=== PATIENT | male | born 1960 | race Caucasian/White ===

== ENCOUNTER → 2024-04-29 | Outpatient (CLI) | payer OTHER, SELFPAY ==
[2024-04-29 08:03] LABS: Collection Type, Urine Clean Catch; Squamous Epithelial Cell,Urine 0 /hpf (0-5)
[2024-04-29 08:36] LABS: Bilirubin,Urine Negative (Negative); Blood,Urine Negative (Negative); Clarity,Urine Clear (Clear/Hazy); Color,Urine Yellow (Lt Yel-Yel); Culture Indicated,Urine Not Indicated; Glucose, Urine Negative (Negative); Ketones,Urine Negative (Negative); Leukocyte Esterase,Urine Negative (Negative); Nitrite,Urine Negative (Negative); PH,Urine 5.5 (5.0-7.0); Protein,Urine Negative (Neg - Trace); RBC,Urine 2 /hpf (0-3); Urobilinogen,Urine Negative mg/dL (0.0-1.0); WBC,Urine 1 /hpf (0-5)
[2024-04-29 08:38] LABS: Basophils % (Auto) 0 % (0-2.5); Eosinophils # (Auto) 0.2 Thou/mm3 (0.0-0.5); Eosinophils % (Auto) 3 % (0-10); Hematocrit 42.3 % (41.0-53.0); Immature Granulocytes % (Auto) 0 % (0-0); Immature Granulocytes Auto 0.02 Thou/mm3 (0.00-0.00); Lymphocytes % (Auto) 30 % (10-50); Mean Corpuscular HGB Conc 33.1 g/dl (31.0-37.0); Mean Corpuscular Hemoglobin 28.6 pg (25.0-35.0); Mean Corpuscular Volume 86 fL (80-100); Monocytes # (Auto) 0.5 Thou/mm3 (0.0-0.8); Monocytes % (Auto) 7 % (0-12); Neutrophils % (Auto) 59 % (37-80); Nucleated Red Blood Cell % 0 /100 WBC (0); Platelet Count 261 Thou/mm3 (140-440); White Blood Count 6.7 Thou/mm3 (3.8-10.6)
[2024-04-29 08:42] LABS: Prostate Specific Antigen 0.18 ng/mL (0-4.00)
[2024-04-29 08:46] LABS: Alanine Aminotransferase 18 U/L (10-49); Albumin, Serum 4.3 gm/dL (3.4-4.8); Alkaline Phosphatase 81 U/L (46-116); Anion Gap 7 (7-16); Aspartate Amino Transferase 18 U/L (0-34); BUN/Creatinine Ratio 17 Ratio (12-20); Bilirubin,Total 0.3 mg/dL (0.3-1.2); Blood Urea Nitrogen 17 mg/dL (9-23); Calcium 9.7 mg/dL (8.3-10.6); Calcium (Corrected) 9.7 mg/dL (8.5-10.1); Carbon Dioxide 25.5 mMol/L (20.0-31.0); Cardiac Risk Estimate 5.5 RATIO (4.0-6.7); Chloride 110 mMol/L (98-107); Cholesterol 180 mg/dL (132-200); Globulin 2.2 gm/dL (2.3-3.5); Glucose 97 mg/dL (74-106); HDL Cholesterol 33 mg/dL (40-60); LDL Cholesterol,Calculated 128 mg/dL (0-130); Osmolality,Calculated 284 (275-295); Sodium 142 mMol/L (136-145); Thyroid Stimulating Hormone 1.96 uIU/mL (0.55-4.78); Total Protein 6.5 gm/dL (5.7-8.2); Triglycerides 93 mg/dL (30-150); eGFR > 60 See Note
[2024-04-29 08:57] LABS: Glucose Estimated Average 108 mg/dL (80-131); Hemoglobin A1C 5.4 % Hgb (4.8-6.0)
== END | disposition home or self-care (01) ==
PROVIDERS: PCP Family Medicine; Referring Provider Physician Assistant; Visit Provider Physician Assistant
DX: E66.9 Obesity, unspecified (principal)
CPT/HCPCS: 36415; 80053; 80061; 81001; 83036; 84153; 84443; 85025

== ENCOUNTER → 2024-05-06 | Outpatient (CLI) | payer MEDICARE, SELFPAY ==
--- NOTE | 2024-05-06 15:00 | XR_ITS ---
Examination: Arterial duplex lower extremity study. Date and time of exam: May 06, 2024 1511 hours INDICATIONS: Bilateral leg pain years Findings: Duplex sonographic imaging of the lower extremity arteries using B-mode/Stoddard scale imaging and Doppler spectral analysis and color flow. Ankle brachial indices have been recorded. Right common femoral artery demonstrates triphasic flow. Right superficial femoral artery demonstrates triphasic flow. Right popliteal artery demonstrates triphasic flow. Right posterior tibial artery demonstrated triphasic flow. Right ankle/brachial index is 1.1. Left common femoral artery demonstrates triphasic flow. Left superficial femoral artery demonstrates triphasic flow. Left popliteal artery demonstrates triphasic flow. Left posterior tibial artery demonstrated triphasic flow. Left ankle/brachial index is 1.2. Impression: Negative examination
== END | disposition home or self-care (01) ==
PROVIDERS: PCP Physician Assistant; Referring Provider Physician Assistant; Visit Provider Physician Assistant
DX: M79.661 Pain in right lower leg (principal); M79.662 Pain in left lower leg
CPT/HCPCS: 93925

== ENCOUNTER 2025-03-27 19:05 | Emergency (ER) | payer MEDICARE, SELFPAY ==
[2025-03-27 19:06] VITALS: BMI 33.6
--- NOTE | 2025-03-27 19:08 | EKG_ITS ---
[facility] Test Date: 2025-03-27 Pat Name: SANGEETHA MARTIN Department: Room: - Gender: Male [employer] Room [employer]: : 1960 Requested By: Ben Patricia Order Number: [id number] Reading MD: Ben Patricia Measurements Intervals [place] Rate: 74 P: 14 CO: 179 QRS: 38 QRSD: 89 T: 29 QT: 372 QTc: 415 Interpretive Statements SINUS RHYTHM WITH OCCASIONAL SUPRAVENTRICULAR PREMATURE COMPLEXES No previous ECG available for comparison /[id number]/[email or web address]/[id number].pdf
[2025-03-27 19:29] VITALS: BP 154/85; PULSE 72; RESP 18; TEMP 37.1; O2SAT 96
--- NOTE | 2025-03-27 19:39 | EDRME_ITS ---
Rapid Medical Screening Exam [facility] Arrival date/time: 03/27/25 19:05 64M with no significant PMH presents to ED with 2 days of intermittent CP and weakness. Patient denies URI symptoms. Chief Complaint: Chest Pain Vital signs: Vital Signs Temperature 98.8 F 03/27/25 19:29 Pulse Rate 72 03/27/25 19:29 Respiratory Rate 18 03/27/25 19:29 Blood Pressure 154/85 H 03/27/25 19:29 Pulse Oximetry (%) 96 03/27/25 19:29 Oxygen Delivery Method Room Air 03/27/25 19:29 Exam: RRR and clear lungs with normal WOB. Clinical Impression: ACS vs PE vs anxiety
--- NOTE | 2025-03-27 19:39 | XR_ITS ---
EXAMINATION: PA chest single view TECHNIQUE: Upright PA chest single view Date and time: March 27, 2025, 194 hours, comparison December 27, 2022 INDICATIONS: Chest pain 5 days FINDINGS: Normal heart size No lobar pneumonia or pulmonary edema Intact osseous structures IMPRESSION: No pneumonia or pulmonary edema
[2025-03-27 20:13] LABS: Basophils # (Auto) 0.0 Thou/mm3 (0.0-0.2); Basophils % (Auto) 0 % (0-2.5); Eosinophils # (Auto) 0.2 Thou/mm3 (0.0-0.5); Eosinophils % (Auto) 2 % (0-10); Hematocrit 39.5 % (41.0-53.0); Hemoglobin 13.2 g/dL (13.5-16.0); Immature Granulocytes Auto 0.04 Thou/mm3 (0.00-0.00); Lymphocytes # (Auto) 3.0 Thou/mm3 (1.0-4.8); Lymphocytes % (Auto) 31 % (10-50); Mean Corpuscular HGB Conc 33.4 g/dl (31.0-37.0); Mean Corpuscular Hemoglobin 28.8 pg (25.0-35.0); Mean Corpuscular Volume 86 fL (80-100); Monocytes # (Auto) 0.9 Thou/mm3 (0.0-0.8); Monocytes % (Auto) 9 % (0-12); Neutrophils # (Auto) 5.7 Thou/mm3 (1.8-7.7); Neutrophils % (Auto) 58 % (37-80); Nucleated Red Blood Cell # 0.00 Thou/mm3 (0.00-0.00); Nucleated Red Blood Cell % 0 /100 WBC (0); Platelet Count 267 Thou/mm3 (140-440); RDW Standard Deviation 41.2 fL (35.1-43.9); Red Blood Count 4.58 Miln/mm3 (4.50-5.90); White Blood Count 9.9 Thou/mm3 (3.8-10.6)
[2025-03-27 20:30] LABS: INR 1.0 (0.9-1.3); Partial Thromboplastin Time 29.6 Seconds (22.0-36.0); Prothrombin Time 10.4 Seconds (9.0-12.2)
[2025-03-27 20:37] LABS: Alanine Aminotransferase 16 U/L (10-49); Albumin, Serum 4.6 gm/dL (3.4-4.8); Albumin/Globulin Ratio 2.3 (1.2-2.2); Alkaline Phosphatase 79 U/L (46-116); Anion Gap 11 (7-16); Aspartate Amino Transferase 19 U/L (0-34); BUN/Creatinine Ratio 14 Ratio (12-20); Bilirubin,Total 0.3 mg/dL (0.3-1.2); Blood Urea Nitrogen 17 mg/dL (9-23); Calcium 9.2 mg/dL (8.3-10.6); Calcium (Corrected) 9.2 mg/dL (8.5-10.1); Carbon Dioxide 25.0 mMol/L (20.0-31.0); Chloride 108 mMol/L (98-107); Creatinine (Component) 1.2 mg/dL (0.6-1.3); Estimated Creatinine Clearance 83.0 mL/min (>60); Globulin 2.0 gm/dL (2.3-3.5); Glucose 87 mg/dL (74-106); Magnesium 2.1 mg/dL (1.6-2.6); Osmolality,Calculated 287 (275-295); Potassium 4.4 mMol/L (3.4-5.1); Sodium 144 mMol/L (136-145); Total Protein 6.6 gm/dL (5.7-8.2); Troponin I < 0.020 ng/mL (0.0-0.045); eGFR > 60 See Note
[2025-03-27 21:01] LABS: Collection Type, Urine Clean Catch; Squamous Epithelial Cell,Urine 0 /hpf (0-5)
[2025-03-27 21:20] LABS: Bilirubin,Urine Negative (Negative); Blood,Urine Negative (Negative); Clarity,Urine Clear (Clear/Hazy); Color,Urine Yellow (Lt Yel-Yel); Culture Indicated,Urine Not Indicated; Glucose, Urine Negative (Negative); Ketones,Urine Negative (Negative); Leukocyte Esterase,Urine Negative (Negative); Nitrite,Urine Negative (Negative); PH,Urine 5.5 (5.0-7.0); Protein,Urine Negative (Neg - Trace); RBC,Urine 2 /hpf (0-3); Specific Gravity,Urine 1.031 (1.001-1.035); Urobilinogen,Urine Negative mg/dL (0.0-1.0); WBC,Urine < 1 /hpf (0-5)
--- NOTE | 2025-03-27 22:12 | PD.EDCHEST ---
ED Chest Pain RME/HPI General Chief Complaint: Chest Pain Stated Complaint: cxp Source: patient, RN notes reviewed and old records reviewed Arrival date/time: 03/27/25 19:05 Mode of arrival: ambulatory Limitations: no limitations RME / HPI complaint: chest pain Onset (ago): day(s) (4) Duration: constant Onset: during rest Pain location: left chest Severity: moderate Severity scale (1-10): 3 Quality: aching Pain radiation: LUE Relieving factors: nothing Exacerbating factors: nothing Associated symptoms: other (None) Treatments prior to arrival chest pain: aspirin RME / HPI narrative: 03/27/25 19:05 64M with no significant PMH presents to ED with 2 days of intermittent CP and weakness. Patient denies URI symptoms. Exam: RRR and clear lungs with normal WOB. Impression: ACS vs PE vs anxiety Related Data Home Medications ?Medication ?Instructions ?Recorded ?Confirmed esomeprazole magnesium 40 mg 40 mg PO QDAY ##0 05/15/15 capsule,delayed release (Nexium) ibuprofen 600 mg tablet 600 mg PO BID PRN PAIN #0 tabs 05/15/15 Pilocarpine Hcl * (SALAGEN *) 5 mg PO QID #0 tabs 05/22/15 diazepam 5 mg tablet (Valium) 5 mg PO QID PRN ANXIETY #0 tabs 05/22/15 Allergies Allergy/AdvReac Type Severity Reaction Status Date / Time NKA* Allergy Uncoded 03/27/25 19:10 Review of Systems Review of Systems Systems Reviewed: All systems reviewed, normal except as documented Cardiovascular Cardiovascular: Reports system reviewed and no additional complaints, except as documented, Denies chest pain with activity, Denies dyspnea, Denies leg edema and Denies lightheadedness Respiratory Respiratory: Denies dyspnea Gastrointestinal Gastrointestinal: Reports system reviewed and no additional complaints, except as documented, Denies nausea and Denies vomiting Neurologic Neurologic: Reports system reviewed and no additional complaints, except as documented Past Medical History Social History SMOKING STATUS: Never smoker ED Exam Narrative Physical exam: 64-year-old male coming in with chest pain that has been present for 4 days straight. The patient states that the pain is in his mid chest and goes to his left arm. It has been there for 4 days. Nothing makes it better nothing makes it worse. No nausea vomiting or diarrhea. No other associated symptoms. No shortness of breath, recent travel, non-smoker and otherwise no risk factors for pulmonary embolism. The patient has no fevers. General Limitations: Present no limitations General appearance: Present alert and in no apparent distress Head Head exam: Present atraumatic Eye Eye exam: Present normal appearance, PERRL and EOMI ENT ENT exam: Present normal exam, normal oropharynx and mucous membranes moist Neck Neck exam: Present normal inspection, full ROM and trachea midline Chest Chest inspection: Present normal inspection and symmetric chest wall rise Respiratory Respiratory exam: Present normal lung sounds bilaterally Cardiovascular Cardiovascular exam: Present regular rate, normal rhythm and normal heart sounds Abdominal Exam Abdominal exam: Present soft and normal bowel sounds Extremities Exam Extremities exam: Present normal inspection and full ROM Back Exam Back exam: Present normal inspection and full ROM Neurological Exam Neurological exam: Present alert, oriented X3 and CN II-XII intact Psychiatric Psychiatric exam: Present normal affect and normal mood Skin Skin exam: Present warm, dry, intact and normal color Course Quality Measures none Orders Category Date Time Status EKG (ED ONLY) *Do not use* NOW Care 03/27/25 19:08 Completed EKG (ED Only) Stat Exams 03/27/25 19:08 Draft XR chest 1V portable Stat Exams 03/27/25 19:39 Completed CBC Stat Lab 03/27/25 19:56 Completed Comprehensive Metabolic Panel Stat Lab 03/27/25 19:56 Completed Drug Screen,Urine Stat Lab 03/27/25 20:50 Completed Magnesium Stat Lab 03/27/25 19:56 Completed Partial Thromboplastin Time Stat Lab 03/27/25 19:56 Completed Prothrombin Time with INR Stat Lab 03/27/25 19:56 Completed Troponin I Stat Lab 03/27/25 19:56 Completed Urinalysis, C/S if Indicated Stat Lab 03/27/25 20:50 Completed Aspirin Med 03/27/25 19:39 Discontinued 325 mg PO X1 ONE Vital Signs Vital signs: Vital Signs Temperature 98.8 F 03/27/25 19:29 Pulse Rate 72 03/27/25 19:29 Respiratory Rate 18 03/27/25 19:29 Blood Pressure 154/85 H 03/27/25 19:29 Pulse Oximetry (%) 96 03/27/25 19:29 Oxygen Delivery Method Room Air 03/27/25 19:29 Chest Pain MDM Narrative MDM Narrative:: 64-year-old male coming in with atypical chest pain continuous for 4 days. No recent travel and the patient does not smoke. No other risk factors for pulmonary embolism. Patient states that he has had symptoms for about 7 days. He finally got into Dr. Maria's office and she sent him here to the emergency department to get evaluated. EKG is reassuring. Chest x-ray shows no pneumonia. Otherwise electrolytes are reassuring. At this time I do not feel the patient has dissection, PE, otherwise other life-threatening emergency. The patient was very satisfied with his care. He feels that all he came here so that he can get a referral to cardiology from his primary care but she sent him here. He will talk to his primary care tomorrow so that she can get him his referral. The patient has a copy of his EKG that he can take with him so he has it in case there is any changes and he can call 911 if needed. Return precautions given understood. He will continue aspirin once a day. Patient data External records reviewed:: [facility] previous records Clinical information provided by:: patient Social determinants that could affect healthcare access:: none Patient has the following chronic illnesses:: GERD How is presenting disease/condition affected by chronic disease/condition?: no chronic disease Evaluation data The following diagnostics were reviewed and interpreted by me:: lab results, radiology exam(s) and EKG tracing(s) Lab and/or radiology exams considered but not ordered:: White count is 9 and normal. Hemoglobin is 13/39 and normal. Platelets 267. This was reviewed interpreted by me. Electrolytes show no obvious significant electrolyte abnormality and INR is normal. LFTs are normal. Troponin negative. Urinalysis shows no infection and drug screen is negative. Interpretation Summary: No obvious leukocytosis, thrombocytopenia, anemia, no electrolyte abnormality and otherwise coags and troponin negative. No infection. Negative drug screen. This was interpreted and read by me. Medications / Prescriptions Medications or Prescriptions considered but not ordered:: None Medication administrations:: Medication Administration History Discontinued Medications Aspirin (Aspirin 325 Mg Tablet) 325 mg PO X1 ONE Stop: 03/27/25 19:40 Last Admin: 03/27/25 20:30 Dose: 325 mg Documented By: As above Consultations Consultation(s) initiated? (list below): No Diagnosis Chest Pain Differential Diagnosis: stable angina, unstable angina pectoris, atypical chest pain, st elevation myocardial infarction, costochondritis and chest pain Most likely diagnosis given after review of the tests above:: Atypical chest pain Admission Indicated Admission indicated?: not indicated Explain why admission is indicated or not indicated:: Patient has no elevation MD. No indication for admission Admission Request Was there a request for admission?: No Disposition Plan Disposition Plan: Discharge Discharge Attestation Discharge Attestation: The patient and all family members were given an opportunity to ask questions and understood the discharge instructions. Discharge instructions specifically effects, indications for sooner follow up or return to the emergency department, and the expected course of current diagnosis. Patient condition: Stable Discharge Plan Plan Patient Disposition: HOME (Self Care) Patient condition on transfer: Stable Prescriptions/Referrals Prescriptions/Med Rec: No Action esomeprazole magnesium [Nexium] 40 MG capsule,delayed release(DR/EC) 40 mg PO QDAY Qty: 0 ibuprofen 600 MG tablet 600 mg PO BID PRN (Reason: PAIN) Qty: 0 diazepam [Valium] 5 MG tablet 5 mg PO QID PRN (Reason: ANXIETY) Qty: 0 Pilocarpine Hcl * (SALAGEN *) 5 MG tablet 5 mg PO QID Qty: 0 Referrals: Godfrey Maria MD [Primary Care Provider, Family Practice] - In 1 week Problem List Clinical Impression: Atypical chest pain Patient/Caregiver Discharge Instructions Education Materials: ED Chest Pain, Uncertain Cause Additional Instructions: Please tell your Doctor That you need a referral to cardiology to get an outpatient stress test. Today you do not need admission to the hospital. Return to the emergency department for any worsening symptoms or any other concerns. I will give you a copy of your EKG to take with you so that if have it in your pocket that way if anything changes you can call 911 and they can compare EKGs. Please take aspirin 81 mg daily until you see your primary care and she decided you do not need it. It was a pleasure meeting you today. Print Language: Welsh Stand Alone Forms: [facility]rina Award Info., Patient Portal Info Letter
[2025-03-27 22:24] LABS: Amphetamine/Methamp Scrn,U Negative (Negative); Barbiturate Screen,Urine Negative (Negative); Benzodiazepines Screen,Urine Negative (Negative); Benzoylecgonine Screen, Ur Negative (Negative); Fentanyl Screen,Urine Negative (Negative); Opiate Screen,Urine Negative (Negative); THC Screen,Urine Negative (Negative)
[2025-03-27 22:36] VITALS: BP 153/82; PULSE 70; RESP 18; TEMP 37.1; O2SAT 97
== END 2025-03-27 23:05 | disposition home or self-care (01) ==
PROVIDERS: Physician Assistant; Emergency Provider Emergency Medicine; PCP Family Medicine
DX: R07.89 Other chest pain (principal)
CPT/HCPCS: 36415; 71045; 80053; 80307; 81001; 83735; 84484; 85025; 85610; 85730; 93005; 99282; A9270